=== PATIENT | female | born 1965 | race Caucasian/White ===

== ENCOUNTER 2017-09-06 05:24 | Emergency (ER) | payer BC ==
[2017-09-06] MEDS ORDERED: NS 0.9% 1000 ML* 1,000 ML IV ONE (05:25)
[2017-09-06 05:57] LABS: Hematocrit 42 % (35-47); Hemoglobin 13.8 g/dl (12.0-16.0); Mean Corpuscular HGB Conc 33 g/dl (31-36); Mean Corpuscular Hemoglobin 29 pg (27-31); Mean Corpuscular Volume 88 fL (80-97); Mean Platelet Volume 8 um3 (7.4-10.4); Red Blood Count 4.78 10^6/ul (4.0-5.4); Red Cell Distribution Width 13 % (10.5-15); White Blood Count 8.5 10^3/ul (3.5-10.8)
[2017-09-06 06:09] LABS: Albumin 4.3 g/dL (3.2-5.2); BUN/Creatinine Ratio 17.8 (8-20); Calcium 9.4 mg/dL (8.6-10.3); EGFR African American 85.2 (>60); EGFR Non-African American 66.3 (>60); Globulin 2.7 g/dL (2-4); HDL Cholesterol 66.5 mg/dL; Potassium 3.3 mmol/L (3.5-5.0); Total Bilirubin 0.3 mg/dL (0.2-1.0)
[2017-09-06 06:10] LABS: Troponin I 0.01 ng/mL (<0.04)
[2017-09-06 06:27] LABS: Urine Bacteria Absent (Absent); Urine Bilirubin Negative (Negative); Urine Glucose Negative (Negative); Urine Nitrite Negative (Negative)
--- NOTE | 2017-09-06 06:36 | ED ---
Anderson Willoughby Alfonso, scribed for Paulina Vazquez MD on 09/06/17 at 0557 . Neurological HPI - HPI Summary HPI Summary: DANA VEGA OVERHEADED AT 0510 ETA 15 MINUTES LEVEL 5 CAVAET DUE TO AMS. This patient is a 52 year old F BIBA to [facility] accompanied by for left sided weakness since waking up at 0415 today. reports "she was fine" before going to sleep. Pt stated worst headache of her life. Pt is not on anticoagulants or aspirin. Pt did take ibuprofen when she woke up in the "middle of the night". Pt's only medication is a medication for her stomach that her does not know the name of. Symptoms aggravated by nothing, alleviated by nothing. denies head trauma or recent surgery. reports a fall (when she was walking to the bathroom). EMS reports vomiting, eye gaze to the right, LUE contracture, severe headache, slurred speech, tremors , confusion, and blood glucose of 180. Initial call to EMS was 0419. - History of Current Complaint Stated Complaint: DANA VEGA Time Seen by Provider: 09/06/17 05:25 Hx Obtained From: Family/Interlocking Machine Operator, EMS Hx From Patient Unobtainable Due To: Extremis Onset/Duration: Sudden Onset, Started hours ago - one, Still Present Timing: Constant Onset Severity: Severe Current Severity: Severe Neurological Deficit Location: LUE, LLE Headache Location: Parietal (Right) Pain Intensity: 10 Pain Scale Used: 0-10 Numeric Character: Weak, Motor Weakness, Impaired Speech Aggravating: Nothing Alleviating: Nothing Associated Signs and Symptoms: Positive: Headache, Impaired Speech TPA Considered: No - hemorrhagic - Allergy/Home Medications Allergies/Adverse Reactions: Allergies Allergy/AdvReac Type Severity Reaction Status Date / Time Shellfish Allergy Allergy Difficulty Verified 03/27/16 20:30 Breathing PMH/Surg Hx/FS Hx/Imm Hx Respiratory History: Reports: Hx Asthma GI History: Reports: Hx Gastroesophageal Reflux Disease Opthamlomology History: Denies: Hx Legally Blind EENT History: Denies: Hx Deafness - Surgical History Surgery Procedure, Year, and Place: none Infectious Disease History: Denies: Traveled Outside the [place] in Last 30 Days - Family History Known Family History: Positive: Other - Negative aneurysm - Social History Lives: With Family Alcohol Use: Occasionally Hx Substance Use: No Substance Use Type: Reports: None Hx Tobacco Use: No Smoking Status (MU): Never Smoked Tobacco Review of Systems Positive: Other - blood glucose of 180. Negative: Fever Positive: Other - eye gaze to the right Cardiovascular: Negative Respiratory: Negative Positive: Vomiting, Diarrhea Positive: Other - fall Neurological: Other - LUE flexion contracture, tremors, confusion Positive: Headache, Weakness - left, Slurred Speech Psychological: Normal All Other Systems Reviewed And Are Negative: No Physical Exam Triage Information Reviewed: Yes Vital Signs On Initial Exam: Initial Vitals Temp Pulse Resp BP Pulse Ox 97.9 F 71 15 145/91 99 09/06/17 05:25 09/06/17 05:25 09/06/17 05:25 09/06/17 05:25 09/06/17 05:25 Vital Signs Reviewed: Yes Completion Of Physical Exam Limited Due To: Level 5 Appearance: Positive: No Pain Distress, Well-Nourished, Ill-Appearing Skin: Positive: Warm, Skin Color Reflects Adequate Perfusion Head/Face: Positive: Other - eyes deviated to right. Negative: Cephalohematoma Eyes: Positive: Conjunctiva Clear ENT: Positive: Normal ENT inspection Neck: Positive: Supple, Nontender Respiratory/Lung Sounds: Positive: Clear to Auscultation, Breath Sounds Present , Other - No respiratory distress Cardiovascular: Positive: RRR, Pulses are Symmetrical in both Upper and Lower Extremities, Other - Brisk capillary refill. Negative: Murmur Abdomen Description: Positive: Nontender, No Organomegaly, Soft. Negative: Distended, Guarding, McBurney's Point Tenderness, Peritoneal Signs, Pulsatile Mass Bowel Sounds: Positive: Present Musculoskeletal: Positive: Other - See NIH Neurological: Positive: Other - See NIH Psychiatric: Positive: Other - See NIH - Josh Coma Scale Best Eye Response: 4 - Spontaneous Best Motor Response: 6 - Obeys Commands Best Verbal Response: 4 - Confused Diagnostics - Vital Signs Vital Signs Temp Pulse Resp BP Pulse Ox 09/06/17 05:25 97.9 F 71 15 145/91 99 - Laboratory Lab Results: Lab Results 09/06/17 09/06/17 09/06/17 Range/Units 05:39 05:39 05:39 WBC 8.5 (3.5-10.8) 10^3/ul RBC 4.78 (4.0-5.4) 10^6/ul Hgb 13.8 (12.0-16.0) g/dl Hct 42 (35-47) % MCV 88 (80-97) fL MCH 29 (27-31) pg MCHC 33 (31-36) g/dl RDW 13 (10.5-15) % Plt Count 372 (150-450) 10^3/ul MPV 8 (7.4-10.4) um3 Neut % (Auto) 61.6 (38-83) % Lymph % (Auto) 28.5 (25-47) % Laporte % (Auto) 6.6 (1-9) % Eos % (Auto) 2.3 (0-6) % Baso % (Auto) 1.0 (0-2) % Absolute Neuts (auto) 5.3 (1.5-7.7) 10^3/ul Absolute Lymphs (auto) 2.4 (1.0-4.8) 10^3/ul Absolute Monos (auto) 0.6 (0-0.8) 10^3/ul Absolute Eos (auto) 0.2 (0-0.6) 10^3/ul Absolute Basos (auto) 0.1 (0-0.2) 10^3/ul Absolute Nucleated RBC 0 10^3/ul Nucleated RBC % 0 INR (Anticoag Therapy) 0.86 L (0.89-1.11) APTT 22.4 L (26.0-36.3) seconds Sodium 138 (133-145) mmol/L Potassium 3.3 L (3.5-5.0) mmol/L Chloride 106 (101-111) mmol/L Carbon Dioxide 22 (22-32) mmol/L Anion Gap 10 (2-11) mmol/L BUN 16 (6-24) mg/dL Creatinine 0.90 (0.51-0.95) mg/dL Est GFR ( Amer) 85.2 (>60) Est GFR (Non-Af Amer) 66.3 (>60) BUN/Creatinine Ratio 17.8 (8-20) Glucose 185 H (70-100) mg/dL Calcium 9.4 (8.6-10.3) mg/dL Total Bilirubin 0.30 (0.2-1.0) mg/dL AST 19 (13-39) U/L ALT 10 (7-52) U/L Alkaline Phosphatase 60 (34-104) U/L Troponin I 0.01 (<0.04) ng/mL Total Protein 7.0 (6.4-8.9) g/dL Albumin 4.3 (3.2-5.2) g/dL Globulin 2.7 (2-4) g/dL Albumin/Globulin Ratio 1.6 (1-3) Triglycerides 86 mg/dL Cholesterol 163 mg/dL LDL Cholesterol 79 mg/dL HDL Cholesterol 66.5 mg/dL Blood Type Antibody Screen 09/06/17 Range/Units 05:39 WBC (3.5-10.8) 10^3/ul RBC (4.0-5.4) 10^6/ul Hgb (12.0-16.0) g/dl Hct (35-47) % MCV (80-97) fL MCH (27-31) pg MCHC (31-36) g/dl RDW (10.5-15) % Plt Count (150-450) 10^3/ul MPV (7.4-10.4) um3 Neut % (Auto) (38-83) % Lymph % (Auto) (25-47) % Laporte % (Auto) (1-9) % Eos % (Auto) (0-6) % Baso % (Auto) (0-2) % Absolute Neuts (auto) (1.5-7.7) 10^3/ul Absolute Lymphs (auto) (1.0-4.8) 10^3/ul Absolute Monos (auto) (0-0.8) 10^3/ul Absolute Eos (auto) (0-0.6) 10^3/ul Absolute Basos (auto) (0-0.2) 10^3/ul Absolute Nucleated RBC 10^3/ul Nucleated RBC % INR (Anticoag Therapy) (0.89-1.11) APTT (26.0-36.3) seconds Sodium (133-145) mmol/L Potassium (3.5-5.0) mmol/L Chloride (101-111) mmol/L Carbon Dioxide (22-32) mmol/L Anion Gap (2-11) mmol/L BUN (6-24) mg/dL Creatinine (0.51-0.95) mg/dL Est GFR ( Amer) (>60) Est GFR (Non-Af Amer) (>60) BUN/Creatinine Ratio (8-20) Glucose (70-100) mg/dL Calcium (8.6-10.3) mg/dL Total Bilirubin (0.2-1.0) mg/dL AST (13-39) U/L ALT (7-52) U/L Alkaline Phosphatase (34-104) U/L Troponin I (<0.04) ng/mL Total Protein (6.4-8.9) g/dL Albumin (3.2-5.2) g/dL Globulin (2-4) g/dL Albumin/Globulin Ratio (1-3) Triglycerides mg/dL Cholesterol mg/dL LDL Cholesterol mg/dL HDL Cholesterol mg/dL Blood Type A Positive Antibody Screen Pending Result Diagrams: 09/06/17 05:39 09/06/17 05:39 Lab Statement: Any lab studies that have been ordered have been reviewed, and results considered in the medical decision making process. - CT Brain CT Interpretation Completed By: Radiologist - 6.9 x 4.5 x 9.1 cm acute hematoma involving right basal ganglia and right temporal and parietal lobes, with surrounding edema. Hematoma also extends into right lateral, third, and fourth ventricles. 1.1 cm of leftward midline shift and effaced basal cisterns, suggesting possible transterntorial herniation. Trace fluid right maxillary sinus. Visualized mastoid air cells. ED physician has reviewed this radiology report and agrees. - EKG 0555 Cardiac Rate: NL EKG Rhythm: Sinus Rhythm - BPM 72 ST Segment: Normal Ectopy: None EKG Interpretation: Normal AV/ IV conduction time, QTc, and axis. No STEMI. NIH Scale - NIH Scale Level of Consciousness: Responds to Minor Stimulation Ask Patient the Month and His/Her Age: Both Correct Ask Pt to Open/Close Eyes and Hydraulic Plumber Helper/Release Non-Paretic Hand: Both Correctly Best Gaze (Only Horizontal Eye Movement): Forced Deviation - right Visual Field Testing: Partial Hemianopia Facial Paresis-Pt to Smile & Close Eyes or Grimace Symmetry: Normal/Symmetrical Motor Function - Right Arm: No Drift-Holds 10 Seconds Motor Function - Left Arm: No Movement Motor Function - Right Leg: No Drift-Holds 10 Seconds Motor Function - Left Leg: No Movement Limb Ataxia-Must be out of Proportion to Weakness Present: Present in Two Limbs Sensory (Use Pinprick to Test Arms/Legs/Trunk/Face): Pinprick Less on Affected Best Language (Describe Picture, Name Items): Some Loss Dysarthria (Read Several Words): Slurs Some Words Extinction and Inattention: Inattention Total Score: 18 Course/Dx - Course Assessment/Plan: Patients medications reviewed this visit. No medication allergies. No medications given in ED. BP's remained 120's-145/[address] Steve (stroke neurologist) who accepts the patient for transfer. Patient will be transferred by helicopter per Dr. Steve for further evaluation by [facility] Stroke Neurology. Neuro ICU and possible intervention for hemorrhagic stroke available at [facility] and not available at [facility]. The patient and is agreeable with this plan. - Differential Dx Differential Diagnoses Neuro: Positive: Cerebrovascular Accident, Intracranial Bleed - Diagnoses Provider Diagnoses: Right-sided intracerebral hemorrhage During the Visit The Following Alert/Code Occurred: Code Mejia - CODE VEGA OVERHEADED AT 0510 ETA 15 MINUTES - Physician Notifications Discussed Care Of Patient With: Aashish Steve Time Discussed With Above Provider: 05:50 Instructed by Provider To: Other - Consulted Dr. Kerns (neurologist) who accepts the patient for transfer, advises helicopter transport. Advises no intubation unless respiratory distress or decreased [place] coma scale. Reason For Transfer: Specialty or service not available at [facility]. - Critical Care Time Critical Care Time: 30-74 min - 60mins Discharge - Discharge Plan Condition: Guarded Disposition: TRANS HIGHER LVL OF CARE FAC Referrals: Non Staff,Doctor [Primary Care Provider] - The documentation as recorded by the Anderson hammer Alfonso accurately reflects the service I personally performed and the decisions made by me, Paulina Vazquez MD.
[2017-09-06 06:55] VITALS: BP 126/75
--- NOTE | 2017-09-06 08:07 | RAD ---
HISTORY: Neurological changes COMPARISONS: None TECHNIQUE: Multiple contiguous axial CT scans were obtained of the head without intravenous contrast. FINDINGS: HEMORRHAGE/INFARCT: There is a large parenchymal hemorrhage centered within the right temporal lobe extending to the right lateral ventricle. This measures approximately 6.8 x 4.5 cm transversely and 7.5 cm in craniocaudal dimension. There is intraventricular extension. There is a rim of edema. Elsewhere, there is no hemorrhage or acute infarct. MASSES/SHIFT: There is subfalcine shift to the left of approximately 1.1 cm. There is effacement of the basal cisterns. EXTRA-AXIAL SPACES: There are no extra-axial fluid collections. SULCI AND VENTRICLES: As noted above, there is intraventricular hemorrhage within the right lateral ventricle, third ventricle, and fourth ventricle CEREBRUM: As noted above, there is a large intraparenchymal hemorrhage centered within the right temporal lobe with associated intraventricular extension and shift. BRAINSTEM: There are no focal parenchymal abnormalities. CEREBELLUM: There are no focal parenchymal abnormalities. VESSELS: The vessels are grossly normal. PARANASAL SINUSES: The paranasal sinuses are clear. ORBITS: The orbits are unremarkable. BONES AND SOFT TISSUE: No bone or soft tissue abnormalities are noted. OTHER: None IMPRESSION: LARGE RIGHT INTRAPARENCHYMAL HEMORRHAGE CENTERED IN THE TEMPORAL LOBE WITH INTRAVENTRICULAR EXTENSION, WITH 1.1 CM OF LEFT SUBFALCINE SHIFT AND EFFACEMENT OF THE BASAL CISTERNS PRELIMINARY FINDINGS WERE COMMUNICATED BY DR. WHITAKER TO DR. ALEXANDER APPROXIMATELY 6:02 AM ON SEPTEMBER 06, 2017
--- NOTE | 2017-09-07 09:05 | ED ---
Progress - Progress Note Progress Note: Pt's stool + blood - will fwd to [facility]. Beth, club steward, aware Course/Dx - Diagnoses Provider Diagnoses: Right-sided intracerebral hemorrhage During the Visit The Following Alert/Code Occurred: Code Mejia - CODE VEGA OVERHEADED AT 0510 ETA 15 MINUTES - Provider Notifications Time Discussed With Above Provider: 05:50 Instructed by Provider To: Other - Consulted Dr. Kerns (neurologist) who accepts the patient for transfer, advises helicopter transport. Advises no intubation unless respiratory distress or decreased Josh coma scale. Reason For Transfer: Specialty or service not available at [facility]. - Critical Care Time Critical Care Time: 30-74 min - 60mins
== END 2017-09-06 06:55 | disposition short-term general hospital (02) ==
LOC: ED 05:24
DX: I61.9 Nontraumatic intracerebral hemorrhage, unspecified (principal); J45.909 Unspecified asthma, uncomplicated; K21.9 Gastro-esophageal reflux disease without esophagitis
CPT/HCPCS: 36415; 70450; 80053; 80061; 81003; 81015; 82270; 83605; 84484; 85025; 85610; 85730; 86850; 86900; 86901; 93005; 96360; 99285

== ENCOUNTER 2018-06-04 21:47 | Emergency (ER) | payer BC ==
--- OUTSIDE RECORDS SUMMARY | 2018-06-04 22:14 | XMS REPORT ---
:1965 External Reference #:[id number] Author Organization [facility] Address [address] [place] [address] [place] [address] Phone [phone] Care Team Providers Name Role Phone Levy Manley D.O. 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 Onset: 02/08/2018 Refractory migraine without aura Ej Navarrete MD Active Social History Type Date Description Comments ETOH Use Denies alcohol use Smoking Patient has never smoked Allergies, Adverse Reactions, Alerts Date Description Reaction Status Severity Comments 02/08/2018 Shellfish-derived Products active Medications Medication Date Status Form Strength Qnty SIG Indications Ordering Provider Baclofen / Active Tablets 10mg take 1/2 tab Unknown 0000 every 8 hours as needed for muscle spasm Levetiracetam / Active Tablets 500mg 1 by mouth Unknown 0000 twice a day Pantoprazole / Active Tablets DR 40mg 1 by mouth Unknown Sodium 0000 every day Trazodone HCL / Active Tablets 50mg 1 tablet at Unknown 0000 bedtime as needed Amitriptyline / Active Tablets 10mg 120ta 4 at bedtime Ej HCL 0000 eda Navarrete MD Duloxetine HCL / Active Caps DR 30mg 1 tab qhs [place], 0000 Part Levy Phan D.O. Artificial / Hx Solution 0.1-0.3% 2 drops in Unknown Tears 0000 - both eyes 05/20/ every 6 2018 hours as needed Chlorhexidine / Hx Solution 0.12% swish and Unknown Gluconate 0000 - spit 15 05/20/ milliliters 2018 twice a day until resolution of symptoms Citalopram / Hx Tablets 20mg 1 by mouth Unknown Hydrobromide 0000 - every day 2017 Diazepam / Hx Tablets 2mg 2 by mouth Unknown 0000 - twice a day 2017 Lactobacillus / Hx Capsules 1 tab by Unknown Extra Strength 0000 - mouth every 05/20/ day - for 2018 use with antibiotic Promethazine / Hx Tablets 12.5mg 1 by mouth Unknown HCL 0000 - every 8 05/20/ hours as 2018 needed nausea with headache Vital Signs Date Vital Result Comment 05/20/2018 Height 68 inches 5'8" Weight 121.00 lb Heart Rate 78 /min BP Systolic Sitting 110 mmHg BP Diastolic Sitting 62 mmHg BMI (Body Mass Index) 18.4 kg/m2 02/08/2018 Height 68 inches 5'8" Weight 109.25 lb Heart Rate 80 /min BP Systolic 114 mmHg BP Diastolic 84 mmHg BMI (Body Mass Index) 16.6 kg/m2 Results Description No Information Procedures Description No Information Encounters Type Date Location Provider CPT E/M Dx Office Visit 02/08/2018 [facility] [address] G43.019 9:00a I69.054 Plan of Care Future Appointment(s):01/20/2019 9:45 am - Ej Navarrete MD at [id number]/20/2018 - Ej Navarrete MDG43.019 Migraine w/o aura, intractable, without status migrainosusComments:Headaches much improved on elavil and magnesium and will continue for now. Has abnormal gait and that is affecting her hip and recommending considering aquatherapy and possibly an orthopedist.Has not had seizures and she is going to talk to her neurosurgeon today whether she still needs to be on keppra at this point.Follow up:8 mbftceN52.054 Hemiplga following ntrm subarach hemor aff left nondom sideNew Therapy:Physical Therapy
--- NOTE | 2018-06-04 22:24 | ED ---
Skin Complaint - HPI Summary HPI Summary: This is scribe Loyd Luna documenting for attending Dr. Rl Stapleton This patient is a 52 year old MF presenting to [facility] accompanied by her with a chief complaint of localized swelling over a right parietal cranioplasty scar since the AM of 06/02/18. 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 She notes she had her sutures out 05/03/18, followed up 05/20 and denies any complications at that time. Pt denies fever, N/V, and discharge from the irritated site. She endorses mild throbbing intermittent pain, as well as an erythematous spot over her right parietal cranioplasty scar. Pt has artificial plate in lieu of bone, as it was infected and removed. I, Dr. Shine personally performed the services described in this documentation as scribed in my presence and it is both accurate and complete. - History of Current Complaint Chief Complaint: EDLacSutureRecheck Time Seen by Provider: 06/04/18 22:11 Stated Complaint: HEAD INJURY Hx Obtained From: Patient Onset/Duration: Started Days Ago, Still Present Timing: Intermittent - throbbing pain Onset Severity: Mild Current Severity: Mild Pain Intensity: 0 Pain Scale Used: 0-10 Numeric Skin Location: Discrete - right-sided skull, Character: Pain, Redness Aggravating Symptom(s): Touch Alleviating Symptom(s): Nothing Associated Signs & Symptoms: Tenderness Related History: Other: - recent cranioplasty, suture removal, etc. - Allergy/Home Medications Allergies/Adverse Reactions: Allergies Allergy/AdvReac Type Severity Reaction Status Date / Time shellfish derived Allergy Difficulty Verified 05/24/18 10:54 Breathing PMH/Surg Hx/FS Hx/Imm Hx Endocrine/Hematology History: Denies: Hx Sickle Cell Disease Respiratory History: Reports: Hx Asthma GI History: Reports: Hx Gastroesophageal Reflux Disease History: Denies: Hx Dialysis Musculoskeletal History: Reports: Hx Back Problems Sensory History: Denies: Hx Legally Blind, Hx Deafness Opthamlomology History: Denies: Hx Legally Blind EENT History: Denies: Hx Deafness Psychiatric History: Reports: Hx Anxiety, Hx Depression Denies: Hx Schizophrenia - Surgical History Surgery Procedure, Year, and Place: 04/16/18 cranioplasty. Infectious Disease History: No Infectious Disease History: Denies: Traveled Outside the [place] in Last 30 Days - Family History Known Family History: Positive: Other - Negative aneurysm - Social History Occupation: Disabled Lives: With Family - Alcohol Use: None Hx Substance Use: No Substance Use Type: Reports: None Hx Tobacco Use: No Smoking Status (MU): Never Smoked Tobacco Review of Systems Negative: Fever Negative: Vomiting, Nausea Positive: no symptoms reported Positive: Rash - purulent red spot right sided skull. Negative: Other - discharge Positive: Headache - intermittent throbbing at site of infection All Other Systems Reviewed And Are Negative: Yes Physical Exam - Summary Physical Exam Summary: VITAL SIGNS: Reviewed. GENERAL: Patient is a well-developed and nourished female who is lying comfortable in the stretcher. Patient is not in any acute respiratory distress. HEAD AND FACE: No signs of trauma. No ecchymosis, hematomas or skull depressions. No sinus tenderness. EYES: PERRLA, EOMI x 2, No injected conjunctiva, no nystagmus. EARS: Hearing grossly intact. Ear canals and tympanic membranes are within normal limits. MOUTH: Oropharynx within normal limits. NECK: Supple, trachea is midline, no adenopathy, no JVD, no carotid bruit, no c- spine tenderness, neck with full ROM. CHEST: Symmetric, no tenderness at palpation LUNGS: Clear to auscultation bilaterally. No wheezing or crackles. CVS: Regular rate and rhythm, S1 and S2 present, no murmurs or gallops appreciated. ABDOMEN: Soft, non-tender. No signs of distention. No rebound no guarding, and no masses palpated. Bowel sounds are normal. EXTREMITIES: Left-sided weakness as a result of AVM, LUE paralysis, LLE in brace , no edema, no cyanosis or clubbing. NEURO: Alert and oriented x 3. LUE paralysis, brace on LLE. Speech is normal and follows commands. SKIN: Dry and warm. 1-2 cm localized cystic swelling over scar at right parietal area. Triage Information Reviewed: Yes Vital Signs On Initial Exam: Initial Vitals Temp Pulse Resp BP Pulse Ox 98.2 F 100 20 154/103 99 06/04/18 21:49 06/04/18 21:49 08/14/18 21:49 06/04/18 21:49 06/04/18 21:49 Vital Signs Reviewed: Yes Diagnostics - Vital Signs Vital Signs Temp Pulse Resp BP Pulse Ox 06/04/18 22:00 86 100 06/04/18 21:57 83 100 06/04/18 21:55 89 177/102 99 06/04/18 21:49 98.2 F 100 20 154/103 99 - Laboratory Lab Statement: Any lab studies that have been ordered have been reviewed, and results considered in the medical decision making process. Re-Evaluation - Re-Evaluation First Eval Re-Evaluation Time: 22:45 Change: Unchanged Comment: Discussed consult with Dr. Noonan, pt and decided to drive to [facility] as opposed to ambulance. Course/Dx - Course Course Of Treatment: A 52-year-old F presents to the ED with a CC of scalp redness/infection since 06/02/18 AM. (+) erythema, purulence, intermittent throbbing pain. (-) fever, discharge. 08/2017 dx AVM resulting in left-sided weakness/hemiplegia, 04/16/18 cranioplasty, 05/03/18 sutures removed, 05/20/18 follow up with no complications. Scalp abscess over right parietal region needed aspiration, yielded 1 cc pus, no anesthesia, no packing. Dr. noonan neurosurgeon at [place], covering for scotty. Pt needs to go to [facility] in [place] to be seen by neurosurgeon to deciede which procedure should be done, pt can go with private vehicle with her as long as its tonight or tomorrow AM. - Diagnoses Provider Diagnoses: Scalp abscess, Post surgical complication - Physician Notifications Discussed Care Of Patient With: Bebo Noonan Time Discussed With Above Provider: 22:39 Instructed by Provider To: Other - Dr. noonan neurosurgeon at [place], covering for Dr. Rosales. Pt needs to go to [facility] in [place] to be seen by neurosurgeon to deciede which procedure should be done, pt can go with private vehicle with her as long as its tonight or tomorrow AM Discharge - Sign-Out/Discharge Documenting (check all that apply): Patient Departure - transfer by private vehicle to [facility] - Discharge Plan Condition: Fair Disposition: TRANS HIGHER LVL OF CARE FAC Patient Education Materials: Surgical Site Infections (ED), Abscess (ED) Referrals: Levy Manley DO [Primary Care Provider] - Additional Instructions: Report to [facility] in [facility] or by tomorrow morning at the latest. - Billing Disposition and Condition Condition: FAIR Disposition: Trans Higher Lvl of Care Fac
[2018-06-04] MEDS ORDERED: Baclofen TAB* 10 MG PO ONE (22:48)
[2018-06-04] MEDS ORDERED: Acetaminophen TAB* 325 MG PO ONE (22:48)
[2018-06-04 23:13] VITALS: BP 167/104
== END 2018-06-04 23:14 | disposition short-term general hospital (02) ==
LOC: ED 21:47
DX: L02.91 Cutaneous abscess, unspecified (principal); R21 Rash and other nonspecific skin eruption; T81.9XXA Unspecified complication of procedure, initial encounter; Z98.890 Other specified postprocedural states; Z87.798 Personal history of other (corrected) congenital malformations
CPT/HCPCS: 87070; 87205; 87640; 87641; 99283; A9270-GY

== ENCOUNTER 2019-08-06 17:48 | Emergency (ER) | payer OTHER ==
[2019-08-06 17:55] VITALS: BP 156/85
[2019-08-06 18:23] LABS: ABS Eosinophils 0.1 10^3/ul (0-0.6); ABS Lymphocytes 1.2 10^3/ul (1.0-4.8); ABS Neutrophils 16.2 10^3/ul (1.5-7.7); Eosinophil % 0.4 %; Hematocrit 41 % (35-47); Hemoglobin 13.7 g/dL (12.0-16.0); Lymphocyte % 6.4 %; Mean Corpuscular HGB Conc 34 g/dL (31-36); Mean Corpuscular Hemoglobin 29 pg (27-31); Mean Corpuscular Volume 86 fL (80-97); Mean Platelet Volume 7.2 fL (7.4-10.4); Nucleated Red Blood Cells % 0.1; Platelet Count 392 10^3/uL (150-450); Red Blood Count 4.73 10^6 /uL (3.70-4.87); Red Cell Distribution Width 14 % (10-15); White Blood Count 18.6 10^3/uL (3.5-10.8)
[2019-08-06 18:35] LABS: INR 0.93 (0.82-1.09)
[2019-08-06 18:40] LABS: Albumin 4.4 g/dL (3.2-5.2); Albumin/Globulin Ratio 1.6 (1-3); BUN/Creatinine Ratio 14.9 (8-20); EGFR African American 111.8 (>60); EGFR Non-African American 92.4 (>60); Globulin 2.7 g/dL (2-4); Potassium 4.4 mmol/L (3.5-5.0); Total Bilirubin 0.6 mg/dL (0.2-1.0); Total Protein 7.1 g/dL (6.4-8.9)
== END 2019-08-06 19:33 | disposition left against medical advice (07) ==
LOC: ED 17:48
DX: Z53.21 Procedure and treatment not carried out due to patient leaving prior to being seen by health care provider (principal); R07.9 Chest pain, unspecified
CPT/HCPCS: 36415; 80053; 84484; 85025; 85610; 93005; 99281